=== PATIENT | female | born 1960 | race American Indian/Alaskan Native ===

== ENCOUNTER 2022-02-26 05:33 | Emergency (ER) | payer MEDICARE ==
--- NOTE | 2022-02-26 07:07 | Emergency Department Report ---
HPI - General Chief Complaint: Psych Time Seen by Provider: 02/26/22 06:57 - HPI HPI: Room 16 The patient is a 61-year-old female present with a chief complaint of insomnia and lack of appetite. Patient has a history of schizophrenia and states she has been compliant with her medication. The patient reportedly came to the emergency department stating that she needed to see someone for her nerves. Patient denies suicidal or homicidal ideation, patient denies auditory visual hallucinations. Patient states she has been suffering from insomnia and lack of appetite for the past 4 days. ED Past Medical Hx - Past Medical History Previous Medical History?: Yes Hx Hypertension: Yes Hx Psychiatric Treatment: Yes (Schizophrenia) Additional medical history: Obesity. Thyroid Disease - Surgical History Past Surgical History?: No - Family History Family history: no significant - Social History Smoking Status: Never Smoker Substance Use Type: None - Medications Home Medications: Home Medications Medication Instructions Recorded Confirmed Last Taken Type Benztropine [Cogentin] 1 mg PO DAILY 02/26/22 02/26/22 Unknown History Levothyroxine Sodium 125 mcg PO QAM 02/26/22 02/26/22 Unknown History [Levothyroxine] Losartan [Cozaar] 100 mg PO QDAY 02/26/22 02/26/22 Unknown History PHENobarbitaL [PHENobarbital] 16.2 mg PO Q12H 02/26/22 02/26/22 Unknown History Potassium Chloride [Klor-Con 10] 10 meq PO DAILY 02/26/22 02/26/22 Unknown History Simvastatin 20 mg PO QPM 02/26/22 02/26/22 Unknown History hydroCHLOROthiazide [HCTZ] 25 mg PO QDAY 02/26/22 02/26/22 Unknown History metroNIDAZOLE [Flagyl] 500 mg PO Q12HR 02/26/22 02/26/22 Unknown History risperiDONE [RisperDAL] 3 mg PO BID 02/26/22 02/26/22 Unknown History ED Review of Systems ROS: Stated complaint: WEAKNESS Other details as noted in HPI Constitutional: no symptoms reported Eyes: denies: eye pain ENT: denies: throat pain Respiratory: no symptoms reported Cardiovascular: denies: chest pain Endocrine: no symptoms reported Gastrointestinal: denies: abdominal pain Genitourinary: denies: dysuria Musculoskeletal: denies: back pain Psychiatric: denies: auditory hallucinations, visual hallucinations, homicidal thoughts, suicidal thoughts Physical Exam - Physical Exam Vital Signs: Vital Signs 02/26/22 02/26/22 05:34 06:50 Temperature 98 F 98.7 F Pulse Rate 110 H 90 Respiratory 18 18 Rate Blood Pressure 176/96 Blood Pressure 152/74 [Left] O2 Sat by Pulse 100 96 Oximetry Physical Exam: GENERAL: The patient is well-developed well-nourished female lying on chair not appearing to be in acute distress. [] HEENT: Normocephalic. Atraumatic. Extraocular motions are intact. Patient has moist mucous membranes. NECK: Supple. Trachea midline CHEST/LUNGS: Clear to auscultation. There is no respiratory distress noted. HEART/CARDIOVASCULAR: Regular. There is no tachycardia. There is no gallop rub or murmur. ABDOMEN: Abdomen is soft, nontender. Patient has normal bowel sounds. There is no abdominal distention. SKIN: There is no rash. There is no edema. There is no diaphoresis. NEURO: The patient is awake, alert, and oriented. The patient is cooperative. The patient has no focal neurologic deficits. The patient has normal speech. GCS 15 MUSCULOSKELETAL: There is no evidence of acute injury. ED Course Vital Signs 02/26/22 02/26/22 05:34 06:50 Temperature 98 F 98.7 F Pulse Rate 110 H 90 Respiratory 18 18 Rate Blood Pressure 176/96 Blood Pressure 152/74 [Left] O2 Sat by Pulse 100 96 Oximetry ED Medical Decision Making - Lab Data Result diagrams: 02/26/22 06:29 02/26/22 06:29 - Differential Diagnosis Schizophrenia Critical care attestation.: If time is entered above; I have spent that time in minutes in the direct care of this critically ill patient, excluding procedure time. ED Disposition Clinical Impression: Schizophrenia Disposition: 63 [facility] Is pt being admited?: No Does the pt Need Aspirin: No Condition: Stable Referrals: PRIMARY CARE, [Primary Care Provider] - 3-5 Days
[2022-02-26 07:11] LABS: Basophils % (Auto) 0.3 % (0.0-1.8); Eosinophils % (Auto) 0.4 % (0.0-4.3); Hematocrit 37.5 % (30.3-42.9); Hemoglobin 12.7 gm/dl (10.1-14.3); Lymphocytes # (Auto) 2.2 K/mm3 (1.2-5.4); Lymphocytes % (Auto) 26.8 % (13.4-35.0); Mean Corpuscular HGB Conc 34 % (30-34); Mean Corpuscular Volume 89 fl (79-97); Monocytes # (Auto) 0.6 K/mm3 (0.0-0.8); Monocytes % (Auto) 7.5 % (0.0-7.3); Platelet Count 280 K/mm3 (140-440); Red Blood Count 4.19 M/mm3 (3.65-5.03); Red Cell Distribution Width 14.1 % (13.2-15.2)
[2022-02-26 07:38] LABS: BUN/Creatinine Ratio 13; Blood Urea Nitrogen 10 mg/dL (7-17); Calcium 9.2 mg/dL (8.4-10.2); Hemolysis Index 1
[2022-02-26 08:22] LABS: Free T4 (Free Thyroxine) 1.84 ng/dL (0.76-1.46)
[2022-02-26 11:18] LABS: Bilirubin,Urine NEG (Negative); Blood,Urine MOD (Negative); Color,Urine Straw (Yellow); Protein,Urine <15 mg/dL mg/dL (Negative); Urobilinogen,Urine < 2.0 mg/dL (<2.0)
[2022-02-26 11:30] LABS: Amphetamine Screen,Urine Negative; Benzodiazepines Screen,Urine Negative; Cannabinoid Screen,Urine Negative; Cocaine Screen,Urine Negative; Methadone Screen,Urine Negative; Opiate Screen,Urine Negative
[2022-02-26 11:35] LABS: Bacteria,Urine 1+ /HPF (Negative); Mucus,Urine FEW /HPF
[2022-02-26] MEDS ORDERED: POTASSIUM CHLORIDE ER 20 MEQ TAB PO ONE (11:35)
[2022-02-26 11:58] LABS: Ictotest,Urine Negative (Negative)
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
[2022-02-26] MEDS ORDERED: traZODone 50 MG TAB PO SCH (22:00)
[2022-02-27 11:21] VITALS: BP 153/58
--- NOTE | 2022-02-27 17:40 | Progress Note ---
Subjective - Reason for Consult Reason for consult: MHE - Chief Complaint Chief complaint: SUBJECTIVE DATE OF SERVICE: 02/27/2022 Patient seen today in the ER today. Patient state that she "feels a little better". Patient state that she has good appetite, but not sleeping well. Patient denies SI/HI at this time, and also denies hearing voices. Mental Status Exam - Vital signs Last Vital Signs Temp 97.9 F 02/27/22 11:20 Pulse 92 H 02/27/22 11:20 Resp 18 02/27/22 11:20 BP 153/58 02/27/22 11:20 Pulse Ox 97 02/27/22 11:20
== END 2022-02-27 18:00 ==
LOC: ED 05:33
DX: F20.9 Schizophrenia, unspecified (principal); I10 Essential (primary) hypertension; Z20.822 Contact with and (suspected) exposure to COVID-19; Z79.899 Other long term (current) drug therapy
CPT/HCPCS: 36415; 80048; 80184; 80307; 81001; 84439; 84443; 85025; 99285; U0003; 80320; G0480

== ENCOUNTER 2022-03-29 04:37 | Emergency (ER) | payer MEDICARE ==
[2022-03-29 14:15] VITALS: BP 145/101
[2022-03-29 14:39] LABS: Basophils % (Auto) 0.3 % (0.0-1.8); Eosinophils # (Auto) 0.3 K/mm3 (0.0-0.4); Eosinophils % (Auto) 3.3 % (0.0-4.3); Hematocrit 38.5 % (30.3-42.9); Hemoglobin 12.8 gm/dl (10.1-14.3); Lymphocytes # (Auto) 3.1 K/mm3 (1.2-5.4); Mean Corpuscular HGB Conc 33 % (30-34); Mean Corpuscular Volume 90 fl (79-97); Monocytes # (Auto) 0.6 K/mm3 (0.0-0.8); Monocytes % (Auto) 7.6 % (0.0-7.3); Platelet Count 339 K/mm3 (140-440); Red Blood Count 4.26 M/mm3 (3.65-5.03); Red Cell Distribution Width 14.6 % (13.2-15.2)
[2022-03-29 15:00] LABS: Blood Urea Nitrogen 3 mg/dL (7-17); Calcium 8.8 mg/dL (8.4-10.2); Hemolysis Index 5
[2022-03-29 15:01] LABS: BUN/Creatinine Ratio 4
[2022-03-29 15:58] LABS: Amphetamine Screen,Urine Negative; Benzodiazepines Screen,Urine Negative; Cannabinoid Screen,Urine Negative; Cocaine Screen,Urine Negative; Methadone Screen,Urine Negative; Opiate Screen,Urine Negative
--- NOTE | 2022-03-29 16:02 | Emergency Department Report ---
ED Psych HPI - General Chief Complaint: Psych Stated Complaint: PSYCH EVAL NOT SLEEPING Time Seen by Provider: 03/29/22 14:01 Source: patient, EMS Mode of arrival: Ambulatory - History of Present Illness Initial Comments: 61-year-old female with a history of schizophrenia who presented to the emergency department complaining of anxiety, insomnia, and feeling as if there is a "V8 Jey living in her house - Related Data Home Medications Medication Instructions Recorded Confirmed Last Taken Benztropine [Cogentin] 1 mg PO DAILY 02/26/22 02/26/22 Unknown Levothyroxine Sodium 125 mcg PO QAM 02/26/22 02/26/22 Unknown [Levothyroxine] Losartan [Cozaar] 100 mg PO QDAY 02/26/22 02/26/22 Unknown PHENobarbitaL [PHENobarbital] 16.2 mg PO Q12H 02/26/22 02/26/22 Unknown Potassium Chloride [Klor-Con 10] 10 meq PO DAILY 02/26/22 02/26/22 Unknown Simvastatin 20 mg PO QPM 02/26/22 02/26/22 Unknown hydroCHLOROthiazide [HCTZ] 25 mg PO QDAY 02/26/22 02/26/22 Unknown metroNIDAZOLE [Flagyl] 500 mg PO Q12HR 02/26/22 02/26/22 Unknown risperiDONE [RisperDAL] 3 mg PO BID 02/26/22 02/26/22 Unknown Previous Rx's Medication Instructions Recorded Last Taken Type diphenhydrAMINE [Benadryl CAP] 25 mg PO QHS PRN #20 capsule 03/29/22 Unknown Rx Allergies Allergy/AdvReac Type Severity Reaction Status Date / Time SUNNY Inhibitors Allergy Swelling Verified 02/26/22 15:27 ED Review of Systems ROS: Stated complaint: PSYCH EVAL NOT SLEEPING Other details as noted in HPI ED Past Medical Hx - Past Medical History Hx Hypertension: Yes Hx Psychiatric Treatment: Yes (Schizophrenia) Additional medical history: Obesity. Thyroid Disease - Social History Smoking Status: Never Smoker Substance Use Type: None - Medications Home Medications: Home Medications Medication Instructions Recorded Confirmed Last Taken Type Benztropine [Cogentin] 1 mg PO DAILY 02/26/22 02/26/22 Unknown History Levothyroxine Sodium 125 mcg PO QAM 02/26/22 02/26/22 Unknown History [Levothyroxine] Losartan [Cozaar] 100 mg PO QDAY 02/26/22 02/26/22 Unknown History PHENobarbitaL [PHENobarbital] 16.2 mg PO Q12H 02/26/22 02/26/22 Unknown History Potassium Chloride [Klor-Con 10] 10 meq PO DAILY 02/26/22 02/26/22 Unknown History Simvastatin 20 mg PO QPM 02/26/22 02/26/22 Unknown History hydroCHLOROthiazide [HCTZ] 25 mg PO QDAY 02/26/22 02/26/22 Unknown History metroNIDAZOLE [Flagyl] 500 mg PO Q12HR 02/26/22 02/26/22 Unknown History risperiDONE [RisperDAL] 3 mg PO BID 02/26/22 02/26/22 Unknown History diphenhydrAMINE [Benadryl CAP] 25 mg PO QHS PRN #20 capsule 03/29/22 Unknown Rx ED Physical Exam - General Limitations: No Limitations ED Course Vital Signs 03/29/22 03/29/22 04:38 14:11 Temperature 98 F 97.4 F L Pulse Rate 82 78 Respiratory 16 20 Rate Blood Pressure 145/101 Blood Pressure 140/100 145/101 [Right] O2 Sat by Pulse 99 100 Oximetry - Reevaluation(s) Reevaluation #1: 03/29/22 16:16 Patient is medically cleared for psychiatric evaluation ED Medical Decision Making - Lab Data Result diagrams: 03/29/22 14:05 03/29/22 14:05 Critical care attestation.: If time is entered above; I have spent that time in minutes in the direct care of this critically ill patient, excluding procedure time. ED Disposition Clinical Impression: Schizophrenia Qualifiers: Schizophrenia type: unspecified Qualified Code(s): F20.9 - Schizophrenia, unspecified Insomnia Qualifiers: Insomnia type: other insomnia Qualified Code(s): G47.09 - Other insomnia Disposition: 01 HOME / SELF CARE / HOMELESS Is pt being admited?: No Condition: Stable Instructions: Schizophrenia, Insomnia Additional Instructions: Professional and Agency Contacts To help [facility](12/03) [place] Crisis Line: Suicide Prevention Line: Crisis Text Line: Text START to [phone] Emergency: 911 Outpatient [facility] Resources: [place]: [facility] [address], [place] [address] [place]: [facility] [address] [place] [address] [place]: [facility] - [address] [place] [address] Sunday thru Sunday - 8am - 5pm [place]: [facility] Service Address: [address], [place] [address] [place]: [facility] Address: [address] [place] [address] Sunday thru Sunday- 7am-2pm [facility] Address: [address] [place] [address] Sunday thrsunday: 8:30AM-5PM Prescriptions: diphenhydrAMINE [Benadryl CAP] 25 mg PO QHS PRN #20 capsule PRN Reason: Insomnia Referrals: PRIMARY CARE, [Primary Care Provider] - 3-5 Days
[2022-03-29 17:21] LABS: Bilirubin,Urine Negative (Negative); Blood,Urine 2+ (Negative); Color,Urine Yellow (Yellow)
[2022-03-29 17:22] LABS: PH,Urine 7.5 (5.0-7.0); Protein,Urine <15 mg/dL mg/dL (Negative); Urobilinogen,Urine < 2.0 mg/dL (<2.0)
== END 2022-03-29 19:00 | disposition home or self-care (01) ==
LOC: ED 04:37
DX: F20.9 Schizophrenia, unspecified (principal); G47.00 Insomnia, unspecified; I10 Essential (primary) hypertension; Z79.899 Other long term (current) drug therapy; Z91.09 Other allergy status, other than to drugs and biological substances
CPT/HCPCS: 36415; 80048; 80307; 80320; 81001; 85025; 99284; G0480